=== PATIENT | female | born 1950 | race Caucasian/White ===

== ENCOUNTER 2016-09-28 08:38 | Outpatient (CLI) | payer OTHER ==
[2016-09-28] VITALS (9 sets, daily range): BP systolic 155–210; BP diastolic 73–103
[~2016-09-28] VITALS: Ht 165.1 cm; Wt 62.6 kg
[~2016-09-28 08:38] MED LIST: ACET500T68 PO; ASPI-482 PO; CARV25TA2 PO; CELE200C PO; LORA1TAB PO; OLME40TA12 PO; OXYC5TAB PO
[2016-09-28 09:10] LABS: BASO # 0.1 x10^3/uL (0.0-0.2); BASO % 1 % (0-3); EOS % 0 % (0-3); HEMATOCRIT 38.9 % (36.0-47.0); HEMOGLOBIN 13.5 g/dL (12.0-15.5); LYMPH # 2.1 x10^3/uL (1.0-4.8); LYMPH % 20 % (24-48); MEAN CORPUSCULAR HEMOGLOBIN 32 pg (25-35); MEAN CORPUSCULAR HGB CONC 35 g/dL (31-37); MEAN CORPUSCULAR VOLUME 92 fL (79-100); MONO % 8 % (0-9); NEUT % 71 % (31-73); PLATELET COUNT 310 x10^3/uL (140-400); RED BLOOD COUNT 4.22 x10^6/uL (3.50-5.40); RED CELL DISTRIBUTION WIDTH 12.8 % (11.5-14.5); WHITE BLOOD COUNT 10.9 x10^3/uL (4.0-11.0)
[2016-09-28 09:19] LABS: INR 1.1 (0.8-1.1); PROTHROMBIN TIME PATIENT 13.5 SEC (11.7-14.0)
[2016-09-28] MEDS ORDERED: LIDOCAINE 1% / SOD BICARB 8.4% 20 ML VIAL. IJ ONE ×2 (10:37→11:30)
[2016-09-28] MEDS ORDERED: IOHEXOL 300 MG/ML 50 ML VIAL. ONE (10:42)
[2016-09-28] MEDS ORDERED: ceFAZolin 1GM IVPB FOR OMNI 100 ML IV ONE (10:55)
[2016-09-28] MEDS ORDERED: MIDAZOLAM HCL/PF 5 MG/5 ML VIAL. ONE (10:55)
[2016-09-28] MEDS ORDERED: fentaNYL PF VIAL 250 MCG/5 ML VIAL ONE (10:55)
[2016-09-28] MEDS ORDERED: fentaNYL PF VIAL 250 MCG/5 ML VIAL IV ONE (11:30)
[2016-09-28] MEDS ORDERED: IOHEXOL 300 MG/ML 50 ML VIAL. IART ONE (11:30)
[2016-09-28] MEDS ORDERED: MIDAZOLAM HCL/PF 5 MG/5 ML VIAL. IV ONE (11:30)
[2016-09-28] MEDS ORDERED: CONTRAST GIVEN MC PRN (11:45)
[2016-09-28 12:19] LABS: PLT ESTIMATE ADEQUATE (ADEQUATE)
--- NOTE | 2016-09-28 15:41 | RAD ---
Fluoroscopically guided kyphoplasty at L2, and L4 09/28/2016 Indication: L2 and L4 compression fractures refractory to conservative management. Discussion: The risks and benefits of the procedure including but not limited to pain, infection, cement extravasation embolization, and neurological injury including paralysis was discussed patient. Informed consent was obtained. The patient was brought to fluoroscopy suite and placed in the prone position. A timeout procedure was performed. The low back was prepped and draped using maximal sterile barrier technique. Using careful biplane fluoroscopic guidance the pedicles of both the L2 and L4 vertebra were identified. A unilateral left-sided transpedicular approach was used at both levels. A trocar needle was advanced down the pedicle, into the posterior third of the vertebral bodies.. A curved sheath was advanced into the contralateral vertebral body under careful biplane fluoroscopic guidance. Following this a kyphoplasty balloon was inflated both levels. The balloon and sheath were removed and the curved cement delivery needle was advanced into the contralateral vertebral body at both levels. Methylmethacrylate cement was then slowly instilled into the vertebral body under intermittent fluoroscopic guidance until adequate filling had been achieved. Minimal filling of a paravertebral vein was noted at both levels. No other significant extravasation or extrusion was identified. After adequate cement filling was achieved the delivery needles, and trochars were removed. Manual pressure was held to achieve hemostasis. No immediate competitions were identified. Fluoroscopy time: 18.3 minutes Dose area product: 153 [place] centimeter squared The procedure was performed under conscious sedation including continuous cardiopulmonary monitoring via dedicated sedation nurse. Sedation time: One hour Impression: Technically successful L2 and L4 kyphoplasty
== END 2016-09-28 14:47 | disposition home or self-care (01) ==
LOC: INTRAD 08:38
PROVIDERS: ATTEND Surgery
DX: S32.028A Other fracture of second lumbar vertebra, initial encounter for closed fracture (principal); S32.048A Other fracture of fourth lumbar vertebra, initial encounter for closed fracture; X58.XXXA Exposure to other specified factors, initial encounter; Y93.9 Activity, unspecified; Y92.89 Other specified places as the place of occurrence of the external cause; Y99.9 Unspecified external cause status; I10 Essential (primary) hypertension; F41.9 Anxiety disorder, unspecified; Z87.39 Personal history of other diseases of the musculoskeletal system and connective tissue; Z86.69 Personal history of other diseases of the nervous system and sense organs; Z72.0 Tobacco use; Z88.1 Allergy status to other antibiotic agents; Z88.8 Allergy status to other drugs, medicaments and biological substances
CPT/HCPCS: 22514; 22515; 36415; 85007; 85027; 85610; 99152; 99153; C1725; C1887; C1892; J0690; J2250; J3010; Q9967

== ENCOUNTER 2016-10-28 08:36 | Outpatient (CLI) | payer OTHER ==
[2016-10-28] VITALS (8 sets, daily range): BP systolic 135–184; BP diastolic 61–88
[~2016-10-28] VITALS: Ht 165.1 cm; Wt 59.9 kg
[2016-10-28] MEDS ORDERED: MULT1TAB52 PO (09:05)
[2016-10-28] MEDS ORDERED: MAGN400C PO (09:05)
[2016-10-28] MEDS ORDERED: VITA40TA PO (09:05)
[2016-10-28] MEDS ORDERED: LACT1CAP6 PO (09:05)
[2016-10-28] MEDS ORDERED: CALC500T30 PO (09:05)
[2016-10-28] MEDS ORDERED: ASCO10002 PO (09:05)
[2016-10-28] MEDS ORDERED: CHOL500045 PO (09:05)
[2016-10-28] MEDS ORDERED: OMEG1CAP6 PO (09:05)
[2016-10-28 09:07] LABS: BASO # 0.1 x10^3/uL (0.0-0.2); BASO % 1 % (0-3); EOS % 1 % (0-3); HEMATOCRIT 39.5 % (36.0-47.0); HEMOGLOBIN 13.7 g/dL (12.0-15.5); LYMPH # 1.7 x10^3/uL (1.0-4.8); LYMPH % 23 % (24-48); MEAN CORPUSCULAR HEMOGLOBIN 32 pg (25-35); MEAN CORPUSCULAR HGB CONC 35 g/dL (31-37); MEAN CORPUSCULAR VOLUME 92 fL (79-100); MONO % 6 % (0-9); NEUT % 70 % (31-73); PLATELET COUNT 276 x10^3/uL (140-400); RED BLOOD COUNT 4.29 x10^6/uL (3.50-5.40); RED CELL DISTRIBUTION WIDTH 13.2 % (11.5-14.5); WHITE BLOOD COUNT 7.6 x10^3/uL (4.0-11.0)
[2016-10-28 09:15] LABS: PROTHROMBIN TIME PATIENT 12.9 SEC (11.7-14.0)
[2016-10-28] MEDS ORDERED: ONDANSETRON PF 4 MG/2 ML VIAL. ONE (09:37)
[2016-10-28] MEDS ORDERED: LIDOCAINE 1% / SOD BICARB 8.4% 20 ML VIAL. IJ ONE ×2 (09:39→10:15)
[2016-10-28] MEDS ORDERED: ONDANSETRON PF 4 MG/2 ML VIAL. IV ONE (09:45)
[2016-10-28] MEDS ORDERED: fentaNYL PF VIAL 250 MCG/5 ML VIAL ONE (10:08)
[2016-10-28] MEDS ORDERED: MIDAZOLAM HCL/PF 5 MG/5 ML VIAL. ONE (10:08)
[2016-10-28] MEDS ORDERED: MIDAZOLAM HCL/PF 5 MG/5 ML VIAL. IV ONE (10:15)
[2016-10-28] MEDS ORDERED: fentaNYL PF VIAL 250 MCG/5 ML VIAL IV ONE (10:15)
[2016-10-28] MEDS ORDERED: IOHEXOL 300 MG/ML 50 ML VIAL. ONE (10:21)
[2016-10-28] MEDS ORDERED: CONTRAST GIVEN MC PRN (10:45)
[2016-10-28] MEDS ORDERED: IOHEXOL 300 MG/ML 50 ML VIAL. IART ONE (11:00)
--- NOTE | 2016-10-29 10:33 | RAD ---
T11 kyphoplasty 10/28/2016 Indication: Pathologic compression fracture of T11 secondary to osteoporosis, with severe pain refractory to conservative treatment measures Discussion: The risks and benefits of the procedure including but not limited to pain, infection, cement extravasation embolization, and neurological injury including paralysis was discussed patient. Informed consent was obtained. The patient was brought to fluoroscopy suite and placed in the prone position. A timeout procedure was performed. The low back was prepped and draped using maximal sterile barrier technique. Using careful biplane fluoroscopic guidance the pedicles of T11 vertebra were identified. A unilateral left-sided transpedicular approach was used. A trocar needle was advanced down the pedicle, into the posterior third of the vertebral body. A curved sheath was advanced into the contralateral vertebral body under careful biplane fluoroscopic guidance. Following this a kyphoplasty balloon was inflated.. The balloon and sheath were removed and the curved cement delivery needle was advanced into the contralateral vertebral body at both levels. Methylmethacrylate cement was then slowly instilled into the vertebral body under intermittent fluoroscopic guidance until adequate filling had been achieved no significant extravasation or extrusion was identified. After adequate cement filling was achieved the delivery needles, and trochars were removed. Manual pressure was held to achieve hemostasis. No immediate competitions were identified. Fluoroscopy time: 15.2 minutes Dose area product: 20 [place]th[place] centimeter squared The procedure was performed under conscious sedation including continuous cardiopulmonary monitoring via dedicated sedation nurse. Sedation time: One hour Impression: Technically successful T11 kyphoplasty
--- NOTE | 2016-10-29 16:05 | PDOC ---
Provider Note Provider Note IR NOTE Patient called this afternoon (10.29.16) with complaint of back pain and headache. The back pain is at the wound site in the left paraspinal region and is tender to palpation. She denies swelling or significant redness. She spastic pain in the central back seems a bit better. This sounds like normal post procedural tenderness. The headache she describes is frontal and perhaps a bit worse laying down that when upright. Laying down does not improve symptoms, nor does being upright aggravate them. She will try some over the counter headache medications and some of her other prescriptions. We discussed signs of a spinal headache, and though symptoms are not suggestive of such, we discussed what to look out for. I told her she can call me, or go to her local ER if she feels things don't improve and she remains concerned. DONNIE QUEVEDO MD Oct 29, 2016 16:05
== END 2016-10-28 13:15 | disposition home or self-care (01) ==
LOC: INTRAD 08:36
PROVIDERS: ATTEND Surgery
DX: M80.88XA Other osteoporosis with current pathological fracture, vertebra(e), initial encounter for fracture (principal); I10 Essential (primary) hypertension; F41.9 Anxiety disorder, unspecified; Z86.69 Personal history of other diseases of the nervous system and sense organs; Z72.0 Tobacco use; Z87.39 Personal history of other diseases of the musculoskeletal system and connective tissue; Z88.1 Allergy status to other antibiotic agents; Z79.01 Long term (current) use of anticoagulants
CPT/HCPCS: 22513; 36415; 85025; 85610; 99152; 99153; C1758; J0690; J2250; J2405; J3010; Q9967